=== PATIENT | male | born 1950 | race Caucasian/White ===

== ENCOUNTER 2024-07-23 04:20 | Emergency (ER) | payer MEDICARE, OTHER, SELFPAY ==
[2024-07-23] VITALS (7 sets, daily range): BP systolic 110–151; BP diastolic 66–87; PULSE 71–95; RESP 17–18; TEMP 36.6; O2SAT 95–98; BMI 24.7
--- NOTE | 2024-07-23 04:25 | XRR_ITS ---
PROCEDURE INFORMATION: Exam: XR Right Shoulder Exam date and time: 07/23/2024 4:31 AM Age: 74 years old Clinical indication: Injury or trauma; Fall; Blunt trauma (contusions or hematomas); Right; Patient HX: Patient fell down a flight of stairs at home. C/O RT shoulder pain. ; Additional info: Fell down stairs, shoulder pain TECHNIQUE: Imaging protocol: Radiologic exam of the right shoulder. Views: 2 or more views. COMPARISON: No relevant prior studies available. FINDINGS: Bones/joints: Comminuted fracture of the distal clavicle with cranial apex angulation, mild impaction. Mild demineralization of the visualized osseous structures. Degenerative change of the visualized osseous structures. Soft tissues: Normal. XR/XR shoulder RT min 2V* [id number] IMPRESSION: Mildly impacted, cranial apex angulated, comminuted fracture of the right distal clavicle.
--- NOTE | 2024-07-23 04:25 | CTR_ITS ---
PROCEDURE INFORMATION: Exam: CT Head Without Contrast Exam date and time: 07/23/2024 4:55 AM Age: 74 years old Clinical indication: Injury or trauma; Blunt trauma (contusions or hematomas); Patient HX: EMS arrival for fall. Patient fell down a flight of stairs with head strike. Abrasion to frontal. ; Additional info: Fell downstairs, head trauma TECHNIQUE: Imaging protocol: Computed tomography of the head without contrast. Radiation optimization: All CT scans at this facility use at least one of these dose optimization techniques: automated exposure control; mA and/or kV adjustment per patient size (includes targeted exams where dose is matched to clinical indication); or iterative reconstruction. COMPARISON: No relevant prior studies available. RADIATION DOSE METRICS: Total DLP (mGy-cm): 1151.65 FINDINGS: Brain: Diffuse parenchymal atrophy. Cerebral ventricles: Compensatory dilation of the ventricles and CSF spaces. Paranasal sinuses: Visualized sinuses are unremarkable. No fluid levels. Mastoid air cells: Visualized mastoid air cells are well aerated. Bones: No acute or aggressive osseous abnormality. Soft tissues: Unremarkable. Other findings: Intracranial atherosclerotic disease. CT/CT head wo con* [id number] IMPRESSION: No acute intracranial findings.
--- NOTE | 2024-07-23 04:42 | W.ED.FALL ---
Documented by User: Bishnu Martin DO 07/23/24 04:44 HPI - Fall General: Chief Complaint: Fall Stated Complaint: FALL Time Seen by Provider: 07/23/24 04:31 History of Present Illness: Patient presents to the ER with complaints of falling down the stairs in his home. Patient to the open the door went the wrong direction just took a tumble all the way down to the bottom. Patient did hit his head but denies unconsciousness. Patient is found at the bottom of the stairs by his . EMS stated he did get up and walk up the all the stairs without any problem. Patient's complaining of pain primarily in his right shoulder but he has an abrasion on his forehead 2 patient is not on any type of anticoagulation. Patient does have a history of dementia. Related Data Home Medications Medication Instructions Recorded Confirmed donepezil 10 mg tablet 10 mg PO DAILY 07/23/24 07/23/24 memantine 10 mg tablet 10 mg PO BID 07/23/24 07/23/24 pantoprazole 40 mg tablet,delayed 40 mg PO DAILY 07/23/24 07/23/24 release pregabalin 25 mg capsule 25 mg PO BID 07/23/24 07/23/24 tamsulosin 0.4 mg capsule 0.4 mg PO DAILY 07/23/24 07/23/24 triamcinolone acetonide 0.1 % 1 applic topical BID 07/23/24 07/23/24 topical cream zaleplon 5 mg capsule 5 mg PO DAILY 07/23/24 07/23/24 Review of Systems General: Reports: 10 or more systems reviewed and unremarkable except in HPI and below Physical Exam Const: COMMON NORMALS: no acute distress, average body habitus, patient oriented x3, no limitations, healthy appearing, alert and well nourished HENMT: COMMON NORMALS: normocephalic; head/scalp not atraumatic (Abrasion hematoma contusion on forehead) HEAD & SCALP: normocephalic; not atraumatic (Abrasion hematoma contusion on forehead) Eye: COMMON NORMALS: Equal, round and reactive pupils present, EOMs intact bilaterally, conjunctivae normal and no scleral icterus CONJUNCTIVA: Yes conjunctivae normal PUPIL: Yes Equal, round and reactive pupils present Neck/C-Spine: COMMON NORMALS: full ROM, no lymphadenopathy, supple, no meningeal signs, no JVD and Thyroid normal THYROID: Thyroid normal Chest: COMMONS NORMALS: normal inspection of the chest; negative for normal palpation of entire chest wall (Tenderness with palpation of lateral clavicular region on right) Resp: COMMON NORMALS: normal respiratory effort, No retractions, No use of accessory muscles and clear to auscultation bilaterally AUSCULTATION: clear to auscultation bilaterally Cardio: COMMON NORMALS: no JVD, regular rate, regular rhythm, S1 normal heart sound present, S2 normal heart sound present, No gallops present (Cardio), No clicks present (Cardio), No murmurs present (Cardio) and No rub (Cardio) RATE: regular rate RHYTHM: regular rhythm HEART SOUNDS: S1 normal heart sound present and S2 normal heart sound present GI: COMMON NORMALS: Normal to inspection, nondistended, normoactive bowel sounds present, Soft to palpation, non-tender, No hepatosplenomegaly present and no masses PALPATION: Yes Soft to palpation and Yes No hepatosplenomegaly present Neuro: COMMON NORMALS: patient oriented x3 SENSORIUM/ORIENTATION: Yes alert MENINGEAL SIGNS: Yes no meningeal signs Course Vital Signs: Vital signs: Vital Signs Temperature 97.8 F 07/23/24 04:22 Pulse Rate 76 07/23/24 13:05 Respiratory Rate 17 07/23/24 05:30 Blood Pressure 126/87 07/23/24 13:05 Pulse Oximetry 98 07/23/24 13:05 Oxygen Delivery Me thod Room Air 07/23/24 06:30 MDM - Fall Medical Records I reviewed the patient's medical records. Lab Data I reviewed the patient's lab results. Radiology Impressions Head CT 07/23/24 04:25 IMPRESSION: No acute intracranial findings. Shoulder X-Ray 07/23/24 04:25 IMPRESSION: Mildly impacted, cranial apex angulated, comminuted fracture of the right distal clavicle. Cervical Spine CT 07/23/24 06:37 IMPRESSION: T2 fracture as discussed is likely related to hyperflexion injury and therefore may be unstable and associated with ligamentous injury. Recommend thoracic spine CT to assess for other fractures. Critical results: THIS REPORT CONTAINS FINDINGS THAT MAY BE CRITICAL / URGENT (stroke protocol) TO PATIENT CARE. The findings were verbally communicated via telephone conference with YAYO COLON at 8:45 AM PROFESSOR OF FAMILY MEDICINE on 07/23/2024. The findings were acknowledged and understood. Lumbar Spine CT 07/23/24 08:44 IMPRESSION: No acute lumbar fracture. Thoracic Spine CT 07/23/24 08:44 IMPRESSION: 1. T2 fracture as previously described. There is widening between T1 and T2 spinous processes likely related to distraction and ligamentous injury. 2. Superior endplate fracture of T7. 3. Other findings as discussed. All radiology interpretation(s) finalized by discharge Discharge Plan Discharge Patient Disposition: Transfer to ED Clinical Impression: Fracture of T2 vertebra, Dementia, Fall Condition: Stable Prescriptions: No Action donepezil 10 mg tablet 10 mg PO DAILY triamcinolone acetonide 0.1 % cream 1 applic TOPICAL BID tamsulosin 0.4 mg capsule 0.4 mg PO DAILY pantoprazole 40 mg tablet,delayed release (DR/EC) 40 mg PO DAILY zaleplon 5 mg capsule 5 mg PO DAILY memantine 10 mg tablet 10 mg PO BID pregabalin 25 mg capsule 25 mg PO BID Sign Out Sign Out Data: Patient Sign Out occurred on 07/23/24 at 06:36. Patient's care was discussed, and care was transferred from Bishnu Martin DO to Yayo Colon DO. Coding Level of Care Code ED Space Sciences Director for Chg Fwd Documented by User: Yayo Colon DO 07/23/24 14:19 HPI - Fall General: Chief Complaint: Fall Stated Complaint: FALL Time Seen by Provider: 07/23/24 04:31 Related Data Home Medications Medication Instructions Recorded Confirmed donepezil 10 mg tablet 10 mg PO DAILY 07/23/24 07/23/24 memantine 10 mg tablet 10 mg PO BID 07/23/24 07/23/24 pantoprazole 40 mg tablet,delayed 40 mg PO DAILY 07/23/24 07/23/24 release pregabalin 25 mg capsule 25 mg PO BID 07/23/24 07/23/24 tamsulosin 0.4 mg capsule 0.4 mg PO DAILY 07/23/24 07/23/24 triamcinolone acetonide 0.1 % 1 applic topical BID 07/23/24 07/23/24 topical cream zaleplon 5 mg capsule 5 mg PO DAILY 07/23/24 07/23/24 Course Vital Signs: Vital signs: Vital Signs Temperature 97.8 F 07/23/24 04:22 Pulse Rate 76 07/23/24 13:05 Respiratory Rate 17 07/23/24 05:30 Blood Pressure 126/87 07/23/24 13:05 Pulse Oximetry 98 07/23/24 13:05 Oxygen Delivery Me thod Room Air 07/23/24 06:30 MDM - Fall Medical Decision Making Care assumed at change of shift. CT of the cervical spine shows signs of a unstable fracture at T2. Thoracic and lumbar spines CT did not do confirm T7 partial compression fracture and an unstable T2 fracture. Patient has family and lives in the area of [place]. Family asked to be transferred there discussed with neurosurgery they accept patient was in ER to ER patient is trauma. Lab Data Radiology Impressions Head CT 07/23/24 04:25 IMPRESSION: No acute intracranial findings. Shoulder X-Ray 07/23/24 04:25 IMPRESSION: Mildly impacted, cranial apex angulated, comminuted fracture of the right distal clavicle. Cervical Spine CT 07/23/24 06:37 IMPRESSION: T2 fracture as discussed is likely related to hyperflexion injury and therefore may be unstable and associated with ligamentous injury. Recommend thoracic spine CT to assess for other fractures. Critical results: THIS REPORT CONTAINS FINDINGS THAT MAY BE CRITICAL / URGENT (stroke protocol) TO PATIENT CARE. The findings were verbally communicated via telephone conference with YAYO COLON at 8:45 AM PROFESSOR OF FAMILY MEDICINE on 07/23/2024. The findings were acknowledged and understood. Lumbar Spine CT 07/23/24 08:44 IMPRESSION: No acute lumbar fracture. Thoracic Spine CT 07/23/24 08:44 IMPRESSION: 1. T2 fracture as previously described. There is widening between T1 and T2 spinous processes likely related to distraction and ligamentous injury. 2. Superior endplate fracture of T7. 3. Other findings as discussed. Discharge Plan Discharge Patient Disposition: Transfer to ED Clinical Impression: Fracture of T2 vertebra, Dementia, Fall Condition: Stable Prescriptions: No Action donepezil 10 mg tablet 10 mg PO DAILY triamcinolone acetonide 0.1 % cream 1 applic TOPICAL BID tamsulosin 0.4 mg capsule 0.4 mg PO DAILY pantoprazole 40 mg tablet,delayed release (DR/EC) 40 mg PO DAILY zaleplon 5 mg capsule 5 mg PO DAILY memantine 10 mg tablet 10 mg PO BID pregabalin 25 mg capsule 25 mg PO BID Sign Out Sign Out Data: Patient Sign Out occurred on 07/23/24 at 06:36. Patient's care was discussed, and care was transferred from Bishnu Martin DO to Yayo Colon DO. Coding Level of Care Code ED Space Sciences Director for Chg Hans
[2024-07-23] MEDS: acetaminophen 500 mg Tablet 1000 MG PO (04:50)
--- NOTE | 2024-07-23 06:37 | CTR_ITS ---
PROCEDURE INFORMATION: Exam: CT Cervical Spine Without Contrast Exam date and time: 07/23/2024 6:56 AM Age: 74 years old Clinical indication: Injury or trauma; Fall; Blunt trauma TECHNIQUE: Imaging protocol: Computed tomography of the cervical spine without contrast. Radiation optimization: All CT scans at this facility use at least one of these dose optimization techniques: automated exposure control; mA and/or kV adjustment per patient size (includes targeted exams where dose is matched to clinical indication); or iterative reconstruction. COMPARISON: CT head wo con* [id number] 07/23/2024 4:55 AM RADIATION DOSE METRICS: Total DLP (mGy-cm): 549.48 FINDINGS: Bones: There is a diastatic fracture of the anterior aspect of the T2 spinous process which extends to involve bilateral inferior facets with slight bilateral diastasis and right displacement. There is also comminuted compression fracture through the inferior endplate of the vertebral body with anterior wedging. There is also displaced fracture of the posterior medial aspect of the left 2nd rib. Lungs: Lung apices are unremarkable for acute finding. Pleural spaces: No visible pneumothorax in portion of pulmonary apices visualized. Soft tissues: Unremarkable. CT/CT cervical spin wo con* [id number] IMPRESSION: T2 fracture as discussed is likely related to hyperflexion injury and therefore may be unstable and associated with ligamentous injury. Recommend thoracic spine CT to assess for other fractures. Critical results: THIS REPORT CONTAINS FINDINGS THAT MAY BE CRITICAL / URGENT (stroke protocol) TO PATIENT CARE. The findings were verbally communicated via telephone conference with YAYO GUERRA at 8:45 AM ASSOCIATE PROFESSOR PHYSICIAN on 07/23/2024. The findings were acknowledged and understood.
--- NOTE | 2024-07-23 08:44 | CTR_ITS ---
PROCEDURE INFORMATION: Exam: CT Lumbar Spine Without Contrast Exam date and time: 07/23/2024 8:58 AM Age: 74 years old Clinical indication: Injury or trauma; Fall; Blunt trauma (contusions or hematomas) TECHNIQUE: Imaging protocol: Computed tomography of the lumbar spine without contrast. Radiation optimization: All CT scans at this facility use at least one of these dose optimization techniques: automated exposure control; mA and/or kV adjustment per patient size (includes targeted exams where dose is matched to clinical indication); or iterative reconstruction. COMPARISON: CT thoracic spin wo con* [id number] 07/23/2024 8:58 AM RADIATION DOSE METRICS: Total DLP (mGy-cm): 874.8 FINDINGS: Bones/joints: No acute lumbar fracture. There are overall mild degenerative changes with disc height loss and vacuum discs at L3-L4 through L5-S1. Bones are demineralized. There are disc bulges and facet degenerative changes. There is mild thecal sac narrowing at L3-L4 and L4-L5. There is mild neural foraminal narrowing at L2-L3 through L5-S1. Soft tissues: Gallstone partially visualized. CT/CT lumbar spine wo con* [id number] IMPRESSION: No acute lumbar fracture.
--- NOTE | 2024-07-23 08:44 | CTR_ITS ---
PROCEDURE INFORMATION: Exam: CT Thoracic Spine Without Contrast Exam date and time: 07/23/2024 8:58 AM Age: 74 years old Clinical indication: Injury or trauma; Fall; Blunt trauma (contusions or hematomas) TECHNIQUE: Imaging protocol: Computed tomography of the thoracic spine without contrast. Radiation optimization: All CT scans at this facility use at least one of these dose optimization techniques: automated exposure control; mA and/or kV adjustment per patient size (includes targeted exams where dose is matched to clinical indication); or iterative reconstruction. COMPARISON: CT lumbar spine wo con* [id number] 07/23/2024 8:58 AM RADIATION DOSE METRICS: Total DLP (mGy-cm): 1107.5 FINDINGS: Bones/joints: There is diastatic fracture of anterior aspect of T2 spinous process which extends to involve bilateral inferior facets with slight bilateral diastasis and right displacement. There is also comminuted compression fracture through the inferior endplate of the T2 vertebral body with anterior wedging. This is likely hyperflexion injury. There is widening between the T1 and T2 spinous processes likely indicating ligamentous injury. There is slight kyphosis due to vertebral height loss at T2-T3. There is acute superior endplate compression fracture with minimal height loss anteriorly at T7. There is mild spondylosis. There is degenerative disc disease with disc bulging/protrusion. Largest is present T5-T6 with central disc protrusion. T8-T9 shows disc height loss with vacuum disc. nd likely minimal disc bulge/protrusion. There is displaced fracture of left 2nd posterior rib and there is adjacent extrapleural hematoma. Soft tissues: Unremarkable. Lungs: There is dependent density in lungs favored to be atelectasis over consolidation. Pleural spaces: No visible pneumothorax. Gallbladder and biliary ducts: Partially visualized gallbladder shows gallstone. CT/CT thoracic spin wo con* [id number] IMPRESSION: 1. T2 fracture as previously described. There is widening between T1 and T2 spinous processes likely related to distraction and ligamentous injury. 2. Superior endplate fracture of T7. 3. Other findings as discussed.
[2024-07-23] MEDS: acetaminophen 1,000 MG/100 ML PIGGYBACK 400 MG IV (10:22)
--- NOTE | 2024-07-23 11:25 | PC.NURSE ---
pt NPO since arrival, provided oral swab with instruction of no drinking/icechips.
--- NOTE | 2024-07-23 11:42 | PC.NURSE ---
discussed pt transfer status and updates with pt and family. no further questions/concerns addressed at this time. physical therapy applied c-collar to pt.
--- NOTE | 2024-07-23 12:52 | PC.NURSE ---
Addendum entered by Suyapa Crowder RN 07/23/24 13:06: facility: [facility] Original Note: report called to [facility] . ER to ER. Accepting physician Robbie Godinez. Gricel requests disc of imaging and print out of entire chart upon transfer. Gricel states pt may be liable for all costs d/t patient request of transfer. this nurse discussed with pt and pt , stated no concerns with paying out of pocket.
--- NOTE | 2024-07-23 13:05 | PC.NURSE ---
report given to [facility] @[id number], no further questions. Gricel contacted and updated on ETA by .
[2024-07-23] MEDS: LORazepam 2 mg/mL INJ 1 mL 1 MG IVP (13:07)
[2024-07-23] MEDS: ketorolac 30 mg/mL INJ 15 MG IVP (13:19)
== END 2024-07-23 13:22 ==
PROVIDERS: Emergency Provider Family Medicine
DX: S22.029A Unspecified fracture of second thoracic vertebra, initial encounter for closed fracture (principal); F03.90 Unspecified dementia, unspecified severity, without behavioral disturbance, psychotic disturbance, mood disturbance, and anxiety; W10.9XXA Fall (on) (from) unspecified stairs and steps, initial encounter
CPT/HCPCS: 51702; 70450; 72125; 72128; 72131; 73030; 96365; 96375; 97760; 99285; J0131; J1885; J2060; L0172